=== PATIENT | female | born 2000 | race Caucasian/White ===

== ENCOUNTER 2024-10-16 17:17 | Emergency (ER) | payer BC, OTHER ==
[2024-10-16] MEDS ORDERED: Acetaminophen 500 MG TAB ONE (17:41)
== END 2024-10-16 19:18 | disposition home or self-care (01) ==
LOC: ERS 17:17
DX: M79.605 Pain in left leg (principal); Z55.6 Problems related to health literacy
CPT/HCPCS: 36415; 85379